=== PATIENT | male | born 1955 | race Caucasian/White ===

== ENCOUNTER → 2020-07-13 | Outpatient (CLI) | payer OTHER ==
[~2020-07-13] MED LIST: ALLEGRA60 MG PO; AMARYL4 MG PO; AMLODIPINE BESY10 MG PO; ASPIRIN325 PO; AVANDAMET 4 MG PO; BENTYL 10 MG CA10 MG PO; BREO ELLIPTA 11 EACH INH; CRESTOR5 MG PO; CYMBALTA60 MG PO; DIOVAN HCT 3201 EAC1 PO; ELIQUIS5 MG PO; FERROUS SULFAT325 MG PO; FEXOFENADINE HC60 MG PO; FIORICET-COD 31 EACH PO; HUMALOG100 UNIT/1 SQ; HYDRALAZINE HC100 MG PO; HYDROCODON-ACE1 EACH PO; INVOKANA300 MG PO; LANTUSSOLASTAR SQ; LASIX 40 MG TAB40 M1 PO; LOVENOX SQ; METFORMIN HCL1000 MG PO; METOPROLOL SUC100 MG PO; MULTI VITAMIN1 EACH PO; PEPCID40 MG PO; PERCOCET 10-321 EACH PO; PERCOCET 5-3251 EACH PO; PRAVASTATIN SOD40 MG PO; PRILOSEC 20 MG20 MG PO; PROAIR HFA8.5 GM INH; REQUIP 1 MG TABL1 M1 PO; RHINOCORT AQUA8.6 GM; SPIRONOLACTONE25 MG PO; TAMBOCOR 100 M100 M1 PO; TELMISARTAN-HC1 EAC2 PO; TIROSINT75 MCG PO; TOPROL XL50 MG PO; TRAZODONE HCL100 MG PO; TRICOR145 MG PO; TRULICITY1.5 MG/0.5 SUBQ
[2020-07-13 12:54] LABS: HEMATOCRIT 45.4 % (42.0-52.0); HEMOGLOBIN 14.6 gm/dL (14.0-18.0); MCH 27.5 pg (26.0-34.0); MCHC 32.2 g/dL (28.0-37.0); MCV 85.4 fL (80.0-100.0); RBC 5.32 mil/uL (4.50-6.00); RDW 14.5 % (10.5-14.5); WBC 12.6 thou/uL (4.0-11.0)
[2020-07-13 12:56] LABS: URINE BILIRUBIN NEGATIVE (Negative); URINE BLOOD NEGATIVE (Negative); URINE CLARITY CLEAR; URINE COLOR YELLOW; URINE GLUCOSE-RANDOM* 3+ (Negative); URINE KETONES NEGATIVE (Negative); URINE LEUKOCYTES-REFLEX NEGATIVE (Negative); URINE NITRITE-REFLEX NEGATIVE (Negative); URINE PROTEIN (DIPSTICK) 1+ (Negative); URINE SPECIFIC GRAVITY 1.015 (1.005-1.035); URINE UROBILINOGEN 0.2 E.U./dl (0.2-1.0)
[2020-07-13 13:02] LABS: CALCIUM 10.1 mg/dL (8.5-10.1); CREATININE 1.1 mg/dL (0.7-1.3); POTASSIUM 4.3 mmol/L (3.5-5.1)
[2020-07-13 13:09] LABS: PROTIME 10.5 Seconds (9.3-11.4)
[2020-07-13 13:22] LABS: CASTS None Seen /LPF (None Seen); CRYSTALS None Seen /LPF (None Seen); SQUAMOUS 0-3 Few /LPF (0-3)
[2020-07-13 13:24] LABS: BACTERIA-REFLEX None Seen /HPF (None Seen); URINE RBC None Seen /HPF (0-2); URINE WBC-REFLEX 0-5 Rare /HPF (0-5)
== END ==
LOC: LAB 11:14
PROVIDERS: ATTEND Orthopaedic Surgery
DX: Z01.812 Encounter for preprocedural laboratory examination (principal); Z20.822 Contact with and (suspected) exposure to COVID-19

== ENCOUNTER 2020-07-20 10:33 | Observation (INO) | payer OTHER ==
[2020-07-20] VITALS (9 sets, daily range): BP systolic 113–139; BP diastolic 53–74
[~2020-07-20] VITALS: Ht 182.9 cm; Wt 154.2 kg
--- NOTE | ~2020-07-20 | O ---
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 PROCEDURE: Revision left total knee arthroplasty, all components. SURGEON: Dr. Franko Treadwell TRACER BULLET CHARGING MACHINE OPERATOR: Ananya Menendez PA-C INDICATIONS FOR TRACER BULLET CHARGING MACHINE OPERATOR: Throughout the case, extensive retraction and manipulation of the knee was required. This was afforded to me by my ssn/ssbn assistant navigator. ANESTHESIA: LMA with an adductor canal block. IMPLANTS: Crisostomo and Nephew size 8, Legion revision femur with a size 6 mm offset director peoplesoft in a 16 x 160 stem, a size 6 tibia with a 4 mm offset director peoplesoft in a 14 x 160 stem, a size 11 constrained polyethylene and size 35 patella. TOURNIQUET TIME: 91 minutes. ESTIMATED BLOOD LOSS: 50 mL. COMPLICATIONS: None. SPECIMENS: Intraoperative frozen section as well as cultures were taken and sent for intraoperative frozen sections showed no neutrophils per high power field. COMPLICATIONS: None. CONDITION UPON LEAVING THE OPERATING ROOM: Stable. INDICATIONS FOR PROCEDURE: The patient is a 65-year-old gentleman who is about 18 or so years out from a left total knee arthroplasty. He has had progressive [facility] [address] [place] [address] OPERATIVE REPORT Name: JENIFER MAYORGA Room #: 445-P ADM IN M.R.#: [id number] Admission: 07/20/20 Attend Phys: Franko Treadwell MD Discharge: Date of : 51 Report #: [id number] pain in his knee. 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 After discussion with him, he elected for revision left total knee arthroplasty. DESCRIPTION OF PROCEDURE: Risks, benefits, alternatives, complications were discussed in detail with the patient including but not limited to risk of anesthesia, risk of damage to nerves, arteries, blood vessels, risk for infection, bleeding, risk for continued knee pain, need for reoperation. Informed consent was obtained from the patient. Left knee was appropriately marked in the preoperative holding area. An IV Ancef was given for preoperative antibiotics. He was brought to the operating room and placed in the supine position on the operating room table. LMA anesthesia was induced without complication. Tourniquet was placed on the left thigh. Left lower extremity was prepped and draped in normal sterile fashion. Timeout was performed properly identifying the patient and procedure as well as the instrumentation and implants. All in the operating room were in agreement. Left lower extremity was exsanguinated, tourniquet was inflated. Tourniquet time was 91 minutes. Previous scar was used. This was opened with a 10 blade. Dissection was taken down sharply to the fascia and deep flaps were developed medially and laterally. Fresh 10 blade was used to make a medial parapatellar arthrotomy and the knee was inspected. Cultures of the fluid were taken and sent. Several synovial samples were taken and sent for intraoperative frozen section and this came back as no acute white cells per high power field. The polyethylene liner was then removed and there was significant medial wear of the polyethylene all the way through the medial portion of the polyethylene. The medial and lateral gutters were reestablished. A synovectomy was performed with Bovie cautery. The femoral component was then removed fairly easily with curved osteotome. There was obvious loosening of this component. Attention was turned to the tibia. Tibial component was also easily removed with flat rigid osteotomes demonstrating loosening of the component. Cement was removed from the tibia. The femur and tibia were then reamed sequentially up to a size 14 for the tibia. This demonstrated good stability. A cleanup cut was made on the tibial plateau was sized, found to be a size 6. This fit best with a 4 offset director peoplesoft and one 30 o'clock position. This was punched and then a trial was built on the back table and placed. Attention was turned to the femur. This was reamed up to a 16, at which point, the size 16 reamer was stable. A distal femoral cleanup cut was made and this was sized, found to have best fit with a size 8 with a 6 mm offset director peoplesoft in the 6 o'clock position and chamfer cuts and anterior and posterior cuts were made. The trial component was built on the back table and box cut was made. This was then trialed with a size 10 and then a size 11 polyethylene and a size 11 constrained polyethylene demonstrated the best stability throughout range of motion of the knee. The previous patellar component was then easily removed and a cleanup cut was made with a freehand with an oscillating saw and a 35 patellar trial was placed. Knee was taken through range of motion, found to be stable, found to have good patellar [facility] [address] [place] [address] OPERATIVE REPORT Name: JENIFER MAYORGA Room #: 445-P [facility] IN M.R.#: [id number] Admission: 07/20/20 Attend Phys: Franko Treadwell MD Discharge: Date of : 51 Report #: [id number]. Trial components were removed. Bony ends were thoroughly irrigated with normal saline. The final components were built on the back table and cemented in place using standard cementation techniques. While the cement cured, a periarticular injection consisting of morphine, ropivacaine, epinephrine and Toradol was placed around the knee joint capsule. After the cement cured, tourniquet was deflated. Hemostasis was obtained with Bovie cautery. Final size 11 constrained polyethylene was placed. A gram of vancomycin was placed deep in the joint. Fascia was closed with 0 Vicryl, skin was closed with 2-0 Vicryl, skin staple and a WINNIE dressing was applied. The patient tolerated this procedure well and went to recovery room under care of anesthesia postoperatively. By: [id number] Franko Treadwell MD /nt
--- NOTE | 2020-07-20 19:15 | NUR ---
PATIENT ARRIVED FROM OR AT 1600 V.S. 98.0 18 73 130/63 O2 SAT 92% 2 L /NC HEIGHT 6"0 WEIGHT 340 LBS AT BEDSIDE. D5 1/2 INFUSING ORDERED THROUGH LEFT FA. PATIENT HAS [employer] DRESSING POLAR PACK TEDS AND SCDS IN PLACE. PT HAD LEFT TOTAL KNEE REVISION. PT'S CPAP SET UP BY SPOUSE. ACCU CHECK AND BLOOD SUGARS ORDERED. PT IS PLEASANT AND COOPERATIVE WITH CARE.
--- NOTE | 2020-07-21 04:26 | NUR ---
ASSESSED AT START OF SHIFT PT A&OX4. IV INTACT AND FLUIDS INFUSING. URINAL AT BEDSIDE. PT ON 2L OF O2 SATS 95%. WEARS CPAP AT NIGHT. OXYCODONE GIVEN FOR PAIN. BSG CHECKED AND INSULIN GIVEN. SCD'S, KARLOS HOSE, WINNIE DRESSING INTACT. POLAR PACK IN PLACE. CALL LIGHT AT REACH AND FALL PRECAUTIONS MAINTAINED. WILL CONT TO MONITOR.
[2020-07-21 04:30] VITALS: BP 103/48
[2020-07-21 05:40] LABS: ABSOLUTE NEUTROPHILS 15.5 thou/uL (1.4-8.2); BASOPHILS 0.2 % (0.0-2.0); EOSINOPHILS 0.1 % (0.0-3.0); HEMATOCRIT 35.8 % (42.0-52.0); HEMOGLOBIN 11.7 gm/dL (14.0-18.0); LYMPHOCYTES 5.5 % (24.0-44.0); MCH 28.2 pg (26.0-34.0); MCHC 32.7 g/dL (28.0-37.0); MCV 86.1 fL (80.0-100.0); MONOCYTES 8.4 % (1.0-8.0); PLATELET COUNT 247 thou/uL (150-400); POLYS 85.8 % (36.0-66.0); RBC 4.16 mil/uL (4.50-6.00); RDW 14.7 % (10.5-14.5)
[2020-07-21 05:57] LABS: CALCIUM 7.9 mg/dL (8.5-10.1); CREATININE 1.7 mg/dL (0.7-1.3); MAGNESIUM 1.9 mg/dL (1.8-2.4); POTASSIUM 4.5 mmol/L (3.5-5.1)
[2020-07-21 06:22] VITALS: BP 120/68
[2020-07-21 06:35] LABS: FOLIC ACID 12.3 ng/mL (8.6-58.9)
--- NOTE | 2020-07-21 07:48 | NUR ---
ASSUMED CARE OF PATIENT HE IS AWAKE ALERT XS4 NO PAIN OR RESP DISTRESS WEARS C-PAP AT NIGHT. BLOOD SUGARS CHECKED AND INSULIN PER ORDERS. PT IS PLEASANT AND COOPERATIVE WITH CARE. TO WORK WITH THERAPY THIS AM HAD LEFT TOTAL KNEE REVISION WITH DR OTERO 07/20/20.
[2020-07-21 08:00] VITALS: BP 104/57
--- NOTE | 2020-07-21 10:38 | NUR ---
Nutrition Note: RD consulted due to BMI >40 and hx of DM. Pt visited this am now s/p L knee arthroplasty. Pt reporting good appetite CONVEYOR SYSTEM OPERATOR, somewhat decreased this am. Reports he ate fairly well at breakfast and plans to order. Tomato soup with grilled cheese at lunch. Encouraged pt to include lean protein and complex carbs at meals to aid in BG control. Also discussed following a consistent CHO diet. Pt reporting 30# wt loss CONVEYOR SYSTEM OPERATOR due to dietary modifications. States he is hopeful to lose more wt now that his knee has been repaired. Pt remains low nutritional risk at this time. RD will remain available.
--- NOTE | 2020-07-21 14:17 | NUR ---
PT ADMITTED RELATED TO LEFT TOTAL KNEE REVISION. CM REVIEWED CHART AND SPOKE WITH CARE TEAM. CM SPOKE WITH PT OVER THE PHONE THIS DAY. PT INDICATED HE RESIDES IN A HOUSE WITH HIS WITH WITH 2 STEPS TP ETNER HOUSE IN FRONT 3 FROM GARAGE AND THEN ALL NEEDS ON 1 LEVEL ONCE INSIDE. 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 PT INDICATED NO DME OF HH HX. PT INDICATED HE NEEDED A FWW FOR USE UPON DC. PT AGREEABLE WITH PROVIDER PLUS ISSUEING FWW FOR HOME USE. IT WAS DELIVERED. PT IS ESTABLISHED WITH OP PT STARTING THIS M,W,F IN [place] [address] FROM HIS HOME. PT DID WELL WITH PT AND IT IS ANTICPATED THAT PT WILL DISHCARGE HOME THIS AFTERNOON. PT WAS ISSUED A FWW BY PROVIDER BARBY AND IS ESTABLISHED WIHT OP PT. NO OTHER CM INTERVENTION INDICATED. CASE CLOSED.
[2020-07-21 15:05] VITALS: BP 104/57
[2020-07-21 15:08] VITALS: BP 104/57
--- NOTE | 2020-07-21 15:44 | NUR ---
DISCHARGE PAPERS REVIEWED SIGNED AND COPY IN CHART. IV ACSESS DCD, RX'S GIVEN AT PRE-OP APPT AND PT FILLED AND HAS AT HOME. ALL BELONGINGS PACKED AND SENT WITH PATIENT. [place] WAS DELIEVERED TO ROOM AND WILL GO HOME WITH PATIENT.PT W/O PAIN OR RESP DISTRESS. HERE TO TRANSPORT PATIENT.
--- NOTE | 2020-07-22 18:06 | PATH ---
[facility] [place] [address] PATHOLOGY RPT PROCEDURE Name: JENIFER MAYORGA Room #: 445-P [facility] Mark Lorenzo#: [id number] Admission: 07/20/20 Date of : 51 Discharge: 07/21/20 Report #: [id number] Path Case #: [id number] [facility] Accession Number: [id number] . 01 Material submitted: . knee - LEFT KNEE SYNOVIUM FS. Modifiers: left . 01 Clinical history: . PRESENCE OF LEFT ARTIFICIAL KNEE JOINT, UNILATERAL PRIMARY OSTEOARTHRITIS LEFT KNEE TOTAL KNEE REVISION . 02 Frozen section diagnosis: . FROZEN SECTION DIAGNOSIS (Dr. Mona Chacon) . FSA1. Left knee synovium, biopsy: - Chronic inflammation, repair and foreign material. - No increase in neutrophils present. . These findings are discussed with Dr. Franko Treadwell in OR-5 and a written report is placed in the patient's chart. . . GROSS DESCRIPTION Specimen is received fresh from the OR labeled with the patient's name, and "left knee synovium", consists of red-fisher to brown-fisher tissue lined with a thin white shiny surface measuring in aggregate of 9 x 9 x 1 cm. The shiny surface is grossly unremarkable with no fibrinopurulent material. Rare nodules are identified ranging from 0.1 to 0.3 cm. The shiny surface is shaved and submitted for frozen section as FSA1, this is subsequently submitted for permanent sections as A1. Shade Cutter sections of the remainder of the synovium (shiny white surface) is submitted along with the underlying soft brown tissue in blocks A2 to A6 for permanent sections only. (IUV:rajendra; 07/20/2020) . Frozen section performed at [facility], [address] [place], [place] [address] , [place] [address]. KAYLEIGH/MBR . 02 Diagnosis: Synovium, left knee synovium, biopsy: - Moderate chronic inflammation, giant cells and polarizable foreign material, status post left artificial knee joint unilateral primar. - Reactive synovial hyperplasia. - No increase in neutrophils identified within synovium. - Dense fibrous tissue as well as focal adipose tissue. [address] [place] [address] PATHOLOGY RPT PROCEDURE Name: JENIFER MAYORGA Room #: 445-P MARY Lorenzo#: [id number] Admission: 07/20/20 Date of : 51 Discharge: 07/21/20 Report #: [id number] Path Case #: [id number] (IUV:collection manager; 07/22/2020) MBR 07/22/2020 1227 Local . 02 Electronically signed: . Mona Chacon MD, Pathologist NPI- [id number] . 03 Gross description: . PLEASE SEE GROSS DESCRIPTION UNDER FROZEN SECTION DIAGNOSIS. /MBR 07/21/2020 1124 Local . 02 Pathologist provided ICD-10: M65.862 . 02 CPT . 496490, [id number] Specimen Comment: A courtesy copy of this report has been sent to [phone] Specimen Comment: Report sent to Performed at: [address] [facility], [place], [place] [id number] MD Familia Villalobos MD Phone: [phone] Performed at: [address] [facility] [id number] MD Mona Chacon MD Phone: [phone] Performed at: [address] [facility] [address], [place], [place] [id number] MD Andrea Moore MD Phone: [phone]
== END 2020-07-21 16:05 | disposition home or self-care (01) ==
LOC: OR 10:33 → TBA 10:34 → OR 12:13 → 4S 15:45 → OR 15:59 → 4S 15:59
PROVIDERS: Nurse Practitioner; ADMIT Orthopaedic Surgery; ATTEND Orthopaedic Surgery
DX: T84.063A Wear of articular bearing surface of internal prosthetic left knee joint, initial encounter (principal); M17.12 Unilateral primary osteoarthritis, left knee; G47.30 Sleep apnea, unspecified; I48.91 Unspecified atrial fibrillation; E03.9 Hypothyroidism, unspecified; F41.9 Anxiety disorder, unspecified; I10 Essential (primary) hypertension; F32.9 Major depressive disorder, single episode, unspecified; J44.9 Chronic obstructive pulmonary disease, unspecified; E78.5 Hyperlipidemia, unspecified; E11.9 Type 2 diabetes mellitus without complications; E66.01 Morbid (severe) obesity due to excess calories; Z79.4 Long term (current) use of insulin; Z79.899 Other long term (current) drug therapy; Z88.1 Allergy status to other antibiotic agents; Z88.8 Allergy status to other drugs, medicaments and biological substances; Z90.49 Acquired absence of other specified parts of digestive tract; Z68.42 Body mass index [BMI] 45.0-49.9, adult; Y79.8 Miscellaneous orthopedic devices associated with adverse incidents, not elsewhere classified; Y92.89 Other specified places as the place of occurrence of the external cause
CPT/HCPCS: 10102; 50010; 50101; 50415; 50954; 51130; 51225; 51320; 51412; 52001; 52282; 53000; 53078; 56528; 57095; 57103; 57116; 57180; 57982; 57984; 58138; 58380; 58384; 58415; 58507; 58508; 58509; 62110; 62900; 64039; 64043; 70005